=== PATIENT | male | born 1980 | race Two or more races ===

== ENCOUNTER 2023-08-15 17:53 | Emergency (ER) | payer OTHER ==
[~2023-08-15] VITALS: Ht 172.7 cm; Wt 61.9 kg
[2023-08-15] MEDS ORDERED: IBUP-1455 PO (21:02)
[2023-08-15 22:30] VITALS: BP 124/88; PULSE 97; RESP 18; TEMP 98.5; O2SAT 99
== END 2023-08-15 22:52 | disposition home or self-care (01) ==
LOC: ER 17:53
DX: S43.101A Unspecified dislocation of right acromioclavicular joint, initial encounter (principal); R22.0 Localized swelling, mass and lump, head; W01.0XXA Fall on same level from slipping, tripping and stumbling without subsequent striking against object, initial encounter; Y93.89 Activity, other specified; Y92.89 Other specified places as the place of occurrence of the external cause; Y99.8 Other external cause status
CPT/HCPCS: 29105; 73030